=== PATIENT | male | born 1945 | race Caucasian/White ===

== ENCOUNTER 2018-02-22 13:31 | Emergency (ER) | payer OTHER ==
[~2018-02-22] VITALS: Ht 193 cm; Wt 111.4 kg
[2018-02-22 13:33] VITALS: TEMP 97.2
[2018-02-22 14:06] LABS: HEMATOCRIT 47.2 % (42.0-52.0); HEMOGLOBIN 15.8 g/dl (13.5-18.0); MEAN CELL VOLUME 93 fl (80.0-100.0); MEAN CORPUSCULAR HEMOGLOBIN 31 pg (27.0-31.0); MEAN CORPUSCULAR HGB CONC 34 g/dl (33.0-37.0); MEAN PLATELET VOLUME 10.3 fl (7.4-10.4); PLATELET COUNT 179 K/mm3 (130-400); REDCELL DISTRIBUTION WIDTH-CV 13.4 % (11.5-14.5)
[2018-02-22 14:11] LABS: INR 1.1 (0.8-3.0)
[2018-02-22 14:14] LABS: PARTIAL THROMBOPLASTIN TIME 40.4 SECONDS (26.0-37.0)
[2018-02-22 14:23] LABS: ALANINE AMINOTRANSFERASE 55 U/L (21-72); ALKALINE PHOSPHATASE 75 U/L (50-136); ANION GAP 11 mmol/L (7-16); AST,SGOT 54 U/L (15-37); BILIRUBIN,TOTAL 0.6 mg/dL (0.0-1.0); BLOOD UREA NITROGEN 14 mg/dL (9-20); C-REACTIVE PROTEIN 0.6 mg/dL (0.0-0.9); CALCIUM 9.1 mg/dL (8.4-10.2); CARBON DIOXIDE 27 mmol/L (22-30); CHLORIDE 104 mmol/L (98-107); CREATINE KINASE 487 U/L (55-170); CREATININE, serum 0.86 mg/dL (0.66-1.25); GLUCOSE 157 mg/dL (74-106); LIPASE 169 U/L (23-300); POTASSIUM 3.7 mmol/L (3.4-5.0); SODIUM 142 mmol/L (137-145)
[2018-02-22 14:35] LABS: BAND 22 % (0-10); LYMPHOCYTE 13 % (20.0-51.0); METAMYELOCYTE 1 % (0-0); NEUTROPHILS 58 % (42.0-75.2); PLATELET ESTIMATE NORMAL (NORMAL)
[2018-02-22 14:36] LABS: TROPONIN-I < 0.012 ng/mL (0.000-0.034)
[2018-02-22 15:28] VITALS: BP 146/82; PULSE 94
== END 2018-02-22 15:32 | disposition short-term general hospital (02) ==
LOC: COL.ER 13:31
PROVIDERS: Emergency Medicine
DX: J96.90 Respiratory failure, unspecified, unspecified whether with hypoxia or hypercapnia (principal); S10.81XA Abrasion of other specified part of neck, initial encounter; S60.222A Contusion of left hand, initial encounter; S60.221A Contusion of right hand, initial encounter; V48.6XXA Car passenger injured in noncollision transport accident in traffic accident, initial encounter
CPT/HCPCS: C9399; J0330; J2250; J2704; J3010; J7030